=== PATIENT | male | born 1950 | race African-American/Black ===

== ENCOUNTER 2016-06-26 18:14 | Inpatient (IN) | payer OTHER ==
[~2016-06-26] VITALS: Ht 180.3 cm; Wt 67.6 kg
[2016-06-26] MEDS ORDERED: AMLO5TAB2 PO (18:31)
[2016-06-26] MEDS ORDERED: RISP4TAB17 PO (18:31)
[2016-06-26] MEDS ORDERED: CEPH-570 PO (18:31)
[2016-06-26] MEDS ORDERED: DIVA500T4 PO (18:31)
[2016-06-26] MEDS ORDERED: ACETAMINOPHEN ES 500 MG TABLET ONE (18:58)
[2016-06-26] MEDS ORDERED: ACETAMINOPHEN ES 500 MG TABLET PO ONE (19:00)
[2016-06-26] MEDS ORDERED: MAGNESIUM HYDROXIDE 30 ML LIQUID UDC PO PRN (20:45)
[2016-06-26] MEDS ORDERED: MAG HYDROX/AL HYDROX/SIMETH 30 ML LIQUID UDC PO PRN (20:45)
[2016-06-26] MEDS ORDERED: LORAZEPAM 0.5 MG TABLET PO PRN (20:45)
[2016-06-26 21:00] VITALS: BP 151/101
[2016-06-26] MEDS: CEPHALEXIN MONOHYDRATE 500 MG CAPSULE PO SCH (21:00)
[2016-06-26] MEDS ORDERED: DIVALPROEX ER 500 MG TAB.SR.24H PO SCH (21:00)
[2016-06-26 23:53] VITALS: BP 123/80
[2016-06-27 07:30] VITALS: BP 148/99
[2016-06-27] MEDS: CEPHALEXIN MONOHYDRATE 500 MG CAPSULE PO SCH ×4 (08:25→20:11)
[2016-06-27] MEDS ORDERED: AMLODIPINE 5 MG TABLET PO SCH (09:00)
[2016-06-27 16:00] VITALS: BP 132/85
[2016-06-27] MEDS: ACETAMINOPHEN 325 MG TABLET PO PRN (18:39)
[2016-06-27 20:00] VITALS: BP 171/105
[2016-06-27] MEDS: DIVALPROEX ER 500 MG TAB.SR.24H PO SCH (20:11)
[2016-06-27] MEDS: risperiDONE 2 MG TABLET PO SCH (20:11)
[2016-06-27 21:00] VITALS: BP 149/86
[2016-06-27] MEDS: AMLODIPINE 5 MG TABLET PO SCH (21:04)
[2016-06-27] MEDS: TEMAZEPAM 7.5 MG CAPSULE PO PRN (23:15)
[2016-06-28 07:30] VITALS: BP 134/91
[2016-06-28] MEDS: CEPHALEXIN MONOHYDRATE 500 MG CAPSULE PO SCH ×4 (09:09→20:36)
[2016-06-28] MEDS: AMLODIPINE 5 MG TABLET PO SCH ×2 (09:15→20:36)
[2016-06-28 15:31] VITALS: BP 124/82
[2016-06-28 20:06] VITALS: BP 141/97
[2016-06-28] MEDS: risperiDONE 2 MG TABLET PO SCH (20:35)
[2016-06-28] MEDS: DIVALPROEX ER 500 MG TAB.SR.24H PO SCH (20:36)
[2016-06-28] MEDS: TEMAZEPAM 7.5 MG CAPSULE PO PRN (23:35)
[2016-06-28] MEDS: ACETAMINOPHEN 325 MG TABLET PO PRN (23:39)
[2016-06-29 06:32] LABS: ALBUMIN 2.9 g/dL (3.4-5.0); BILIRUBIN,TOTAL 0.5 mg/dL (0.2-1.0); MAGNESIUM 1.8 mg/dL (1.8-2.4); PHOSPHOROUS 4.3 mg/dL (2.5-4.9); POTASSIUM 4.6 mmol/L (3.5-5.1); TOTAL PROTEIN, SERUM 9.8 g/dL (6.4-8.2)
[2016-06-29 06:41] LABS: THYROID STIMULATING HORMONE 0.873 mIU/mL (0.358-3.740)
[2016-06-29 06:54] LABS: HEMATOCRIT 37.7 % (40.0-50.0); HEMOGLOBIN 12.2 g/dL (14.0-18.0); MEAN CORPUSCULAR HEMOGLOBIN 29.5 uug (27.0-31.0); MEAN CORPUSCULAR HGB CONC 32 g/dL (32.0-37.0); MEAN CORPUSCULAR VOLUME 91.1 fL (82.0-92.0); PLATELET COUNT (AUTO) 260 K/uL (150-450); RED BLOOD CELL COUNT(AUTO) 4.14 MIL/uL (4.70-6.10); RED CELL DISTRIBUTION WIDTH 14.9 % (11.5-14.5); WHITE BLOOD COUNT (AUTO) 6.5 K/uL (4.0-11.2)
[2016-06-29 07:30] VITALS: BP 136/94
[2016-06-29] MEDS: AMLODIPINE 5 MG TABLET PO SCH ×2 (08:07→20:28)
[2016-06-29] MEDS: CEPHALEXIN MONOHYDRATE 500 MG CAPSULE PO SCH ×4 (08:07→20:24)
[2016-06-29 11:27] LABS: NEUTROPHILS % (AUTO) 59.4 % (38.5-71.5)
[2016-06-29 11:28] LABS: BASOPHILS % (AUTO) 0.3 % (0.0-2.0); EOSINOPHILS % (AUTO) 6.7 % (0.0-7.0); LYMPHOCYTES % (AUTO) 23.9 % (20.5-51.5); MONOCYTES % (AUTO) 9.7 % (0.0-11.0)
[2016-06-29 15:10] LABS: *BILIRUBIN,URIN NEGATIVE (NEGATIVE); *BLOOD, URINE 2+ (NEGATIVE); *COLOR,URINE YELLOW (YELLOW); *KETONES,URINE NEGATIVE (NEGATIVE); *PROTEIN,URINE 1+ (NEGATIVE); *UROBILINOGEN,URINE 0.2 E.U./dl (NORMAL); LEUKOCYTE ESTERASE ,URINE 1+ (NEGATIVE); NITRITE, URINE NEGATIVE (NEGATIVE); UGLUCOSE NEGATIVE (NEGATIVE)
[2016-06-29 15:27] LABS: *CLARITY,URINE SLIGHTLY CLOUDY (CLEAR)
[2016-06-29 15:41] LABS: RBC,URINE 50-80 /HPF (0-3); SQUAMOUS EPITHELIAL CELL,UR MODERATE /HPF (NONE SEEN); WBC,URINE 20-50 /HPF (0-3)
[2016-06-29 16:00] VITALS: BP 140/95
[2016-06-29 20:00] VITALS: BP 144/87
[2016-06-29] MEDS: risperiDONE 2 MG TABLET PO SCH (20:23)
[2016-06-29] MEDS: DIVALPROEX ER 500 MG TAB.SR.24H PO SCH (20:24)
[2016-06-30 07:30] VITALS: BP 131/86
[2016-06-30] MEDS: CEPHALEXIN MONOHYDRATE 500 MG CAPSULE PO SCH ×4 (08:25→20:22)
[2016-06-30] MEDS: AMLODIPINE 5 MG TABLET PO SCH ×2 (08:26→20:22)
[2016-06-30] MEDS: ACETAMINOPHEN 325 MG TABLET PO PRN ×2 (11:51→20:21)
[2016-06-30 17:04] VITALS: BP 127/80
[2016-06-30 20:00] VITALS: BP 133/75
[2016-06-30] MEDS: DIVALPROEX ER 500 MG TAB.SR.24H PO SCH (20:20)
[2016-06-30] MEDS: risperiDONE 2 MG TABLET PO SCH (20:23)
[2016-07-01] MEDS: ACETAMINOPHEN 325 MG TABLET PO PRN ×3 (05:13→20:26)
[2016-07-01] MEDS: AMLODIPINE 5 MG TABLET PO SCH ×2 (08:01→20:20)
[2016-07-01] MEDS: CEPHALEXIN MONOHYDRATE 500 MG CAPSULE PO SCH (08:01)
[2016-07-01 11:43] VITALS: BP 144/90
[2016-07-01 16:30] VITALS: BP 143/83
[2016-07-01 20:02] VITALS: BP 154/93
[2016-07-01] MEDS: risperiDONE 2 MG TABLET PO SCH (20:20)
[2016-07-01] MEDS ORDERED: DIVALPROEX ER 500 MG TAB.SR.24H PO SCH (21:00)
[2016-07-01] MEDS ORDERED: DIVALPROEX ER 250 MG TAB.SR.24H PO SCH (21:00)
[2016-07-01] MEDS: TEMAZEPAM 7.5 MG CAPSULE PO PRN (22:48)
[2016-07-02] MEDS: ACETAMINOPHEN 325 MG TABLET PO PRN (03:05)
[2016-07-02 07:20] LABS: BASOPHILS % (AUTO) 0.4 % (0.0-2.0); EOSINOPHILS # (AUTO) 0.1 K/uL (0.0-0.7); EOSINOPHILS % (AUTO) 1.4 % (0.0-7.0); HEMATOCRIT 34.4 % (40.0-50.0); HEMOGLOBIN 11.4 g/dL (14.0-18.0); LYMPHOCYTES # (AUTO) 1.5 K/uL (0.8-4.8); LYMPHOCYTES % (AUTO) 25.7 % (20.5-51.5); MEAN CORPUSCULAR HEMOGLOBIN 29.8 uug (27.0-31.0); MEAN CORPUSCULAR HGB CONC 33 g/dL (32.0-37.0); MEAN CORPUSCULAR VOLUME 89.9 fL (82.0-92.0); MONOCYTES # (AUTO) 0.3 K/uL (0.1-1.30); MONOCYTES % (AUTO) 5.5 % (0.0-11.0); NEUTROPHILS # (AUTO) 4.1 K/uL (1.8-8.9); PLATELET COUNT (AUTO) 226 K/uL (150-450); RED BLOOD CELL COUNT(AUTO) 3.83 MIL/uL (4.70-6.10); RED CELL DISTRIBUTION WIDTH 14.6 % (11.5-14.5)
[2016-07-02 07:30] VITALS: BP 129/83
[2016-07-02 07:34] LABS: ALBUMIN 2.9 g/dL (3.4-5.0); BILIRUBIN,TOTAL 0.3 mg/dL (0.2-1.0); CALCIUM 9.7 mg/dL (8.5-10.1); CREATININE 0.9 mg/dL (0.6-1.3); MAGNESIUM 1.8 mg/dL (1.8-2.4); PHOSPHOROUS 3.4 mg/dL (2.5-4.9); POTASSIUM 3.9 mmol/L (3.5-5.1); TOTAL PROTEIN, SERUM 9.7 g/dL (6.4-8.2)
[2016-07-02 09:02] VITALS: BP 129/83
[2016-07-02] MEDS: AMLODIPINE 5 MG TABLET PO SCH (09:02)
== END 2016-07-02 12:15 | disposition home or self-care (01) | DRG 885 ==
LOC: ER 18:14 → GPS 19:51
PROVIDERS: ADMIT Psychiatry & Neurology Psychiatry; ATTEND Internal Medicine
DX: F31.2 Bipolar disorder, current episode manic severe with psychotic features (principal); E87.1 Hypo-osmolality and hyponatremia; N39.0 Urinary tract infection, site not specified; E44.0 Moderate protein-calorie malnutrition; Z91.018 Allergy to other foods; I10 Essential (primary) hypertension; L50.9 Urticaria, unspecified; D64.9 Anemia, unspecified; M16.12 Unilateral primary osteoarthritis, left hip; G89.29 Other chronic pain; Z68.20 Body mass index [BMI] 20.0-20.9, adult; J30.9 Allergic rhinitis, unspecified; Z79.899 Other long term (current) drug therapy
CPT/HCPCS: 36415; 71010; 80164; 83735; 84100; 84443; 85025; 87086; 93005; A4663